=== PATIENT | female | born 1980 | race Caucasian/White ===

== ENCOUNTER → 2016-08-11 16:35 | Outpatient (CLI) | payer MEDICAID ==
[2013-02-06 11:20] VITALS: BMI 26.7
[~2016-08-11 16:35] MED LIST: BACTRIM DS TABL1 TAB; NORCO 5/325 TAB1 TA1 PO; SEPTRA DS TABLE1 TAB PO
== END | disposition home or self-care (01) ==
LOC: D.MAMMO 15:45
DX: Z12.31 Encounter for screening mammogram for malignant neoplasm of breast (principal)

== ENCOUNTER → 2016-09-16 17:10 | Outpatient (CLI) | payer MEDICAID ==
[2013-02-06 11:20] VITALS: BMI 26.7
== END | disposition home or self-care (01) ==
LOC: D.MAMMO 13:30
DX: R92.8 Other abnormal and inconclusive findings on diagnostic imaging of breast (principal)

== ENCOUNTER 2017-03-30 16:24 | Emergency (ER) | payer MEDICAID ==
[2013-02-06 11:20] VITALS: BMI 26.7
== END 2017-03-30 18:56 | disposition left against medical advice (07) ==
LOC: D.ER 16:24
DX: R20.0 Anesthesia of skin (principal)

== ENCOUNTER 2017-11-25 16:13 | Emergency (ER) | payer MEDICAID ==
[2013-02-06 11:20] VITALS: BMI 26.7
== END 2017-11-25 18:29 | disposition home or self-care (01) ==
LOC: D.ER 16:13
DX: S63.502A Unspecified sprain of left wrist, initial encounter (principal); W19.XXXA Unspecified fall, initial encounter; Y93.89 Activity, other specified; Y92.017 Garden or yard in single-family (private) house as the place of occurrence of the external cause; I10 Essential (primary) hypertension; F17.200 Nicotine dependence, unspecified, uncomplicated

== ENCOUNTER 2018-07-30 15:31 | Emergency (ER) | payer MEDICAID ==
[~2018-07-30] VITALS: Ht 170.2 cm; Wt 104.5 kg
[2018-07-30 15:38] VITALS: Ht 170.2 cm; Wt 104.5 kg
[2018-07-30 16:05] LABS: BASOPHILS 0.1 % (0-2); HEMATOCRIT 46.1 % (36.0-48.0); HEMOGLOBIN 15.8 g/dL (12-16); IMMATURE GRANULOCYTES 0.1 % (0-5); LYMPHOCYTES 19.7 % (15-50); MCH 29.4 pg (26.0-34.0); MCHC 34.3 g/dL (31.0-37.0); MCV 85.7 fL (80.0-100.0); MEAN PLATELET VOLUME 11.2 fL (7.4-10.4); MONOCYTES 6.2 % (2-11); NEUTROPHILS 71.9 % (40-80); PLATELET COUNT 139 10x3/uL (130-400); RBC 5.38 10x6/uL (4.00-5.40); RDW 13.1 % (11.5-14.5); WBC 7.1 10x3/uL (4.8-10.8)
[2018-07-30 16:17] LABS: ALBUMIN 4.1 g/dL (3.4-5.0); ALKALINE PHOSPHATASE 85 U/L (46-116); ALT (SGPT) 57 U/L (10-68); BILIRUBIN - TOTAL 0.53 mg/dL (0.2-1.3); CALC OSMOLALITY 277 mosm/kg (275-300); CALCIUM 8.8 mg/dL (8.5-10.1); CARBON DIOXIDE 19.8 mmol/L (21.0-32.0); CHLORIDE - SERUM 103 mmol/L (98-107); CREATININE - SERUM 0.8 mg/dL (0.6-1.3); GLUCOSE 91 mg/dL (74-106); PROTEIN - SERUM 8.1 g/dL (6.4-8.2); SODIUM 138 mmol/L (136-145); UREA NITROGEN 18 mg/dL (7-18); eGFR NON AFRICAN AMERICAN 84 mL/min (90-120)
[2018-07-30 16:48] LABS: APPEARANCE CLEAR (CLEAR); COLOR YELLOW (YELLOW)
[2018-07-30 16:49] LABS: BILIRUBIN NEGATIVE (NEGATIVE); EPITHELIAL CELLS 0-5 /hpf (0-5); GLUCOSE NEGATIVE (NEGATIVE); KETONE NEGATIVE (NEGATIVE); NITRITE NEGATIVE (NEGATIVE); PROTEIN NEGATIVE (NEGATIVE); RED CELLS - URINE OCC /hpf (0-5); SPECIFIC GRAVITY 1.015 (1.005-1.020); UROBILINOGEN NORMAL (NORMAL); WHITE CELLS - URINE NSEEN /hpf (0-5)
[2018-07-30] MEDS ORDERED: ZOFRAN ODT4 MG/UDTAB PO (17:49)
[2018-07-30] MEDS ORDERED: MACROBID100 MG PO (17:49)
[2018-07-30 19:51] VITALS: BP 126/77
== END 2018-07-30 19:52 | disposition home or self-care (01) ==
LOC: D.ER 15:31
PROVIDERS: Emergency Medicine
DX: N39.0 Urinary tract infection, site not specified (principal); E86.0 Dehydration; A08.4 Viral intestinal infection, unspecified; F17.200 Nicotine dependence, unspecified, uncomplicated

== ENCOUNTER 2018-12-19 10:46 | Emergency (ER) | payer MEDICAID ==
[~2018-12-19] VITALS: Ht 170.2 cm; Wt 81.8 kg
[~2018-12-19 10:46] MED LIST changes: +MACROBID100 MG PO; +ZOFRAN ODT4 MG/UDTAB PO
[2018-12-19 11:07] VITALS: Ht 170.2 cm; Wt 81.8 kg
[2018-12-19] MEDS ORDERED: PREDNISONE10 MG PO (11:38)
[2018-12-19] MEDS ORDERED: AMOXICILLIN875 MG PO (11:38)
[2018-12-19] MEDS ORDERED: TESSALON PERLE100 MG PO (11:38)
[2018-12-19 12:02] VITALS: BP 122/68
== END 2018-12-19 12:04 | disposition home or self-care (01) ==
LOC: D.ER 10:46
DX: J02.0 Streptococcal pharyngitis (principal); J01.90 Acute sinusitis, unspecified

== ENCOUNTER 2019-03-13 12:51 | Emergency (ER) | payer MEDICAID ==
[~2019-03-13] VITALS: Ht 170.2 cm; Wt 100.0 kg
[~2019-03-13 12:51] MED LIST changes: +AMOXICILLIN875 MG PO; +PREDNISONE10 MG PO; +TESSALON PERLE100 MG PO
[2019-03-13 13:03] VITALS: Ht 170.2 cm; Wt 100.0 kg
[2019-03-13] MEDS ORDERED: ALEVE220 MG PO (13:08)
[2019-03-13] MEDS ORDERED: VOLTAREN75 MG PO (15:19)
[2019-03-13] MEDS ORDERED: OMEPRAZOLE40 MG PO (15:19)
[2019-03-13] MEDS ORDERED: STERAPRED 5MG 65 M1 PO (15:19)
[2019-03-13 15:39] VITALS: BP 122/80
== END 2019-03-13 15:39 | disposition home or self-care (01) ==
LOC: D.ER 12:51
DX: M25.532 Pain in left wrist (principal); F17.210 Nicotine dependence, cigarettes, uncomplicated